=== PATIENT | female | born 1935 ===

== ENCOUNTER 2016-11-17 09:26 | Emergency (ER) | payer MEDICARE, MEDICAID ==
[2016-11-17 09:46] VITALS: BP 142/77; PULSE 90; RESP 16; TEMP 97.2; O2SAT 98
[2016-11-17] MEDS ORDERED: Lidocaine 2% Inj (20ml) INFIL ONE (11:16)
[2016-11-17] MEDS ORDERED: Lidocaine 2% Inj (20ml) ONE (11:25)
[2016-11-17] MEDS ORDERED: Bacitracin 500 Units/gm Oint Foilpak UD ONE (11:57)
--- NOTE | 2016-11-17 12:05 | C.PDOC ---
History Of Present Illness 80 y/o female presents to ED with complaint of splinter to right thumb sustained yesterday from wooden banister. Patient states she was unable to remove the splinter at home. Denies, fever, chills, weakness, numbness, or other complaints. Time Seen by Provider: 11/17/16 11:10 Chief Complaint (Nursing): Foreign Body History Per: Patient History/Exam Limitations: no limitations Onset/Duration Of Symptoms: Days Current Symptoms Are (Timing): Still Present Location Of Injury: Right: Hand (thumb) Quality Of Symptoms: Painful. denies: Draining Recent travel outside of the [place]: No Past Medical History Reviewed: Historical Data, Nursing Documentation, Vital Signs Vital Signs: Last Vital Signs Temp 97.2 F L 11/17/16 09:45 Pulse 90 11/17/16 09:45 Resp 16 11/17/16 09:45 BP 142/77 11/17/16 09:45 Pulse Ox 98 11/17/16 12:06 - Medical History PMH: Arthritis Family History: States: Unknown Family Hx - Social History Hx Alcohol Use: No Hx Substance Use: No - Immunization History Hx Tetanus Toxoid Vaccination: Yes Hx Influenza Vaccination: Yes Hx Pneumococcal Vaccination: No Review Of Systems Except As Marked, All Systems Reviewed And Found Negative. Constitutional: Negative for: Fever, Chills Skin: Positive for: Other (+foreign body splinter right thumb). Negative for: Rash Neurological: Negative for: Weakness, Numbness Physical Exam - Physical Exam Appears: Non-toxic, No Acute Distress Skin: Normal Color, Warm, Dry Head: Atraumatic, Normacephalic Eye(s): bilateral: Normal Inspection Extremity: Normal ROM, No Tenderness, Capillary Refill (< 2 sec. ), No Deformity , Other (1.0 cm wooden foreign body to volar aspect of distal right thumb) Extremity: Bilateral: Normal Color And Temperature Pulses: Left Radial: Normal, Right Radial: Normal Neurological/Psych: Oriented x3, Normal Speech, Normal Cognition, Normal Motor, Normal Sensation Gait: Steady ED Course And Treatment O2 Sat by Pulse Oximetry: 98 (RA) Pulse Ox Interpretation: Normal Progress Note: Foreign body removed by me with local anaesthesia lidocaine 2% used. Patient tolerated procedure well. On reassessment, patient is resting comfortably, and is in no acute distress. Patient instructed to follow up with clinic/PMD within 1-2 days for further evaluation. Medical Decision Making Medical Decision Making: Tetanus is up to date. Finger was cleansed using betadine and removed using 11 blade and foreceps. Disposition - Disposition Referrals: Beulah Peterson MD [Staff Provider] - Disposition: HOME/ ROUTINE Disposition Time: 12:00 Condition: IMPROVED Additional Instructions: Wash with soap and water and then apply bacitracin twice a day for 1 week. Instructions: Soft Tissue Foreign Body (ED) - Clinical Impression Clinical Impression: Foreign body in subcutaneous tissue - PA / IT SECURITY ADMINISTRATOR / Resident Statement MD/DO has reviewed & agrees with the documentation as recorded. - Scribe Statement The provider has reviewed the documentation as recorded by the Williamibe Rolando Tafoya Provider Scribe Attestation: All medical record entries made by the Scribe were at my direction and personally dictated by me. I have reviewed the chart and agree that the record accurately reflects my personal performance of the history, physical exam, medical decision making, and the department course for this patient. I have also personally directed, reviewed, and agree with the discharge instructions and disposition. PROCEDURES - Foreign Body Removal Consent Obtained: verbal consent Site: right, hand (thumb) Description of foreign body: other (wood) Sedation/Analgesia: other (wound was anesthesized using lidocaine 2%) Technique: removal with forceps, incision made to facilitate removal (using 11 blade) Confirmed by:: direct visualization Complications:: None Post-procedure exam: Awake, alert Neurovascular: Normal distal pulse, Normal capillary, Distal motor function normal, No change from pre-procedure
== END 2016-11-17 12:06 | disposition home or self-care (01) ==
LOC: C.ER 09:26
DX: S60.351A Superficial foreign body of right thumb, initial encounter (principal); W45.8XXA Other foreign body or object entering through skin, initial encounter

== ENCOUNTER 2018-05-07 14:14 | Emergency (ER) | payer MEDICARE, OTHER ==
[2018-05-07 14:22] VITALS: BMI 23.4
--- NOTE | 2018-05-07 14:44 | C.PDOC ---
History Of Present Illness 82 yr old female w/ hx of DM2 p/w L middle finger pain after cleaning fish yesterday. She notes that she had some pain to the top of her L finger along her lateral fold of the inner part of the L middle finger with some yellowish drainage. She notes that she drained all of the fluid out but that it was still painful. She denies any pain along the flexor part of her finger or finger swelling. She denies any fever, chills or night sweats. No fall or trauma. No other complaints. Time Seen by Provider: 05/07/18 14:27 Chief Complaint (Nursing): Finger,Hand,&Wrist History Per: Patient Past Medical History Vital Signs: Last Vital Signs Temp 97.7 F 05/07/18 14:39 Pulse 71 05/07/18 14:39 Resp 14 05/07/18 14:39 BP 157/87 H 05/07/18 14:39 Pulse Ox 99 05/07/18 14:39 - Medical History PMH: Arthritis Family History: States: Unknown Family Hx - Social History Hx Alcohol Use: No Hx Substance Use: No - Immunization History Hx Tetanus Toxoid Vaccination: Yes Hx Influenza Vaccination: No Hx Pneumococcal Vaccination: No Review Of Systems Constitutional: Negative for: Fever, Chills, Sweats Eyes: Negative for: Pain ENT: Negative for: Ear Pain Cardiovascular: Negative for: Chest Pain, Palpitations Respiratory: Negative for: Cough Gastrointestinal: Negative for: Nausea, Vomiting Genitourinary: Negative for: Dysuria Musculoskeletal: Negative for: Neck Pain Skin: Negative for: Jaundice, Bruising Neurological: Negative for: Weakness Physical Exam - Physical Exam Appears: Well, Non-toxic Skin: Normal Color, Warm, Dry Head: Atraumatic, Normacephalic Eye(s): bilateral: Normal Inspection, PERRL, EOMI Nose: Normal Throat: Normal Neck: Normal Cardiovascular: Rhythm Regular Respiratory: Normal Breath Sounds Gastrointestinal/Abdominal: Normal Exam Back: Normal Inspection Extremity: Normal ROM, Other (Left 3rd digit pain along lateral medial fold, w/ mild serous drainage noted. No fusiform swelling or pain along flexor tender or pain to distal pulp or digit. No joint involvement. Good cap refill. full ROM w/ out pain. N/V intact. ) Extremity: Bilateral: Atraumatic ED Course And Treatment O2 Sat by Pulse Oximetry: 99 Medical Decision Making Medical Decision Makin yr old F w/ hx of Dm2 p/w L 3rd digit paronychia, post drainage. No foreign bodies noted noted on exam. No foreign bodies noted per pt and myself- she was cleaning fish- not deboning them. No felon or flexor tenosynovitis. will d/c home with abx for paronycia and continued pain. informed pt to use warm compressess as well as topical abx as well and to f/u. Disposition - Disposition Referrals: [facility] [Outside] Samuel López MD [Staff Provider] - Disposition: HOME/ ROUTINE Disposition Time: 14:42 Condition: GOOD Additional Instructions: See Dr. López or come here if the infection worsens. FOLLOW UP WITH YOUR PRIMARY CARE DOCTOR [facility]. Prescriptions: Clindamycin [Cleocin] 450 mg PO TID 7 Days #63 cap Instructions: Paronychia (DC) Forms: [employer] (Sami) - Clinical Impression Clinical Impression: Paronychia
[2018-05-07 14:45] VITALS: BP 157/87; PULSE 71; RESP 14; TEMP 97.7; O2SAT 99
== END 2018-05-07 14:52 | disposition home or self-care (01) ==
LOC: C.ER 14:14
DX: L03.012 Cellulitis of left finger (principal)